=== PATIENT | female | born 1975 | race Caucasian/White ===

== ENCOUNTER 2020-04-30 08:00 | Inpatient (IN) | payer BC, MEDICAID ==
[~2020-04-30] VITALS: Ht 154.9 cm; Wt 81.8 kg
[~2020-04-30 08:00] MED LIST: CALC500T63 PO; CHOL50004 PO; ENZY1TAB5 PO; LACT1CAP73 PO; MULT-1085 PO; OMEG1CAP46 PO; VITA-268 PO; [UNRECOGNIZED DRUG - OTHER] PO; [UNRECOGNIZED DRUG - REMARK] PO; azithromycin/NS 500mg/250ml 250 ML IV ONE
[2020-04-30] MEDS ORDERED: normal saline 1000ml 1,000 ML IV ONE ×3 (11:05→12:50)
--- NOTE | 2020-04-30 11:20 | NUR ---
Dory continuing with care of pt at this time
[2020-04-30] MEDS ORDERED: enoxaparin 100mg/ml syringe SUBCUT ONE (11:25)
--- NOTE | 2020-04-30 11:25 | NUR ---
PT SATS INTERMITTENTLY FLUXIATING FROM 70 TO 95% ON RA. PT PLACED ON NC 6L O2 AND PROVIDER CHUCKY GILLETTE CALLED TO ROOM AND SEEN PT. PT TO REMAIN ON O2 @6L VIA NC AND TO START LOVENOX
[2020-04-30] MEDS ORDERED: enoxaparin 80mg/0.8ml syringe SUBCUT ONE (11:30)
[2020-04-30 11:36] LABS: HEMOGLOBIN 7.5 g/dl (12.0-16.0); RED BLOOD COUNT 2.03 X10'6 (4.20-5.60)
[2020-04-30 11:39] LABS: MEAN CORPUSCULAR HEMOGLOBIN 37.2 PG (27.0-31.0); MEAN CORPUSCULAR HGB CONC 35.4 g/dL (33.0-36.5); MEAN CORPUSCULAR VOLUME 104.9 FL (78-98); RED CELL DISTRIBUTION WIDTH 19.3 % (11.5-14.5)
[2020-04-30 11:43] LABS: WHITE BLOOD COUNT 150.2 X10'3 (4.5-11.0)
[2020-04-30 11:45] LABS: HEMATOCRIT 21.2 % (35.0-45.0)
[2020-04-30] MEDS ORDERED: morphine 4 MG/ML inj SYRINge IV ONE (11:50)
[2020-04-30] MEDS ORDERED: acetaminophen 325mg tablet PO ONE (11:50)
[2020-04-30] MEDS ORDERED: ondansetron/PF 4mg/2ml inj IV ONE (11:50)
[2020-04-30] MEDS ORDERED: iohexol 350MG/ML 100ml bottle IV ONE (11:52)
[2020-04-30 11:53] LABS: D-DIMER 24.68 MG/L FEU (0-0.50)
[2020-04-30 11:58] LABS: ALANINE AMINOTRANSFERASE 89 U/L (12-78); ALBUMIN 3.8 G/DL (3.4-5.0); ALKALINE PHOSPHATASE 97 IU/L (46-116); ANION GAP 12 (8-16); ASPARTATE AMINO TRANSFERASE 94 U/L (10-37); BILIRUBIN,TOTAL 1.1 MG/DL (0.1-1.0); BLOOD UREA NITROGEN 12 MG/DL (7-18); BUN/CREATININE RATIO 9.1 (6.6-38.0); CALCIUM 9.5 MG/DL (8.5-10.1); CHLORIDE 103 MMOL/L (99-107); CREATININE 1.32 MG/DL (0.40-0.90); GLUCOSE 130 MG/DL (70-104); SODIUM 141 MMOL/L (135-145); TOTAL CARBON DIOXIDE 25.9 MMOL/L (24-32); TOTAL PROTEIN 7.7 G/DL (6.4-8.2); eGFR 44 ML/MIN
[2020-04-30 12:01] LABS: POTASSIUM 2.9 MMOL/L (3.5-5.1)
--- NOTE | 2020-04-30 12:06 | NUR ---
PT O2 SATS WENT DOWN TO 80% WITH NC AT 2L, PT PLACED ON NON-REBREATHER AT 15L AND O2 SATS NOW 98%.
[2020-04-30 12:08] LABS: TOTAL CELLS COUNTED 100
[2020-04-30 12:11] LABS: PLATELET ESTIMATE DECREASED
[2020-04-30] MEDS ORDERED: potassium 10mEq/100ml NS w/LIDOcaine (10mg/bag) IV ONE (12:15)
[2020-04-30] MEDS ORDERED: potassium Cl 10 mEq/100mL bag IV SCH (12:20)
[2020-04-30] MEDS ORDERED: potassium Cl 10 mEq/100mL bag IV ONE (12:20)
[2020-04-30 12:22] LABS: LACTATE DEHYDROGENASE 3414 U/L (81-234)
[2020-04-30] MEDS ORDERED: CefTRIAXone/D5W-Rocephin 1gm 50 ML IV ONE (12:30)
[2020-04-30] MEDS ORDERED: azithromycin/NS 500mg/250ml 250 ML IV ONE (12:30)
--- NOTE | 2020-04-30 12:59 | NUR ---
1ST CONTACT WITH PT, PT IS SITTING UP IN BED, TALKING FULL SENTENCES, SLIGHTLY PRODUCTIVE COUGH, ON NRB, PAIN IS 4/10 MIDSTERNAL CHEST PAIN RADIATING TO SCAPULA, AND RT ANTERIOR THIGH PAIN
--- NOTE | 2020-04-30 13:00 | NUR ---
WENT WITH PT TO CT SCAN ,PT ON NONREBREATHER MASK SAT 98%,PT STATED THAT SHE IS FEELING CALUSTROPHOBIC ,PT WAS DIAPHORTIC AND LOOKED ANXIOUS ,REMOVED THE NONREBREATHER MASK AND HAD HER ON NC AND PT WAS SATURATING 85-88%.HAD HER BACK ON NONBREA AFTER CT SCAN WAS DONE,PT BROUGHT BACK TO ROOM RT WAITING FOR THE PT FOR ABG.
--- NOTE | 2020-04-30 13:04 | NUR ---
RT AT BEDSIDE
--- NOTE | 2020-04-30 13:10 | NUR ---
2ND LITER NS INFUSING W/O,
[2020-04-30] MEDS ORDERED: vancomycin/NS 1 GM ADD-VANTAGE 250 ML IV ONE (13:15)
[2020-04-30 13:20] LABS: ABG BASE EXCESS -3.6 mmol/L (-2.0-2.0); ABG HCO3 21.1 mmol/L (22.0-26.0); ABG OXYGEN SATURATION 88.6 % (94-97); ABG PCO2 (T) 37.1 mmHg (32.0-45.0); ABG PO2 (T) 58.9 mmHg (75.0-100.0); ALLEN'S TEST POSITIVE; FCOHb 0.5 % (0.0-3.9); FLOW 12 L/min; FO2Hb 88.2 % (94-97); PATIENT TEMPERATURE 37.5; TOTAL HEMOGLOBIN 7.3 G/dl (12.0-16.0)
[2020-04-30 14:09] LABS: OCCULT BLOOD STOOL NEGATIVE (Neg)
[2020-04-30] MEDS ORDERED: methylPREDNISolone sod succ 125mg/2ml vial IV ONE (14:25)
--- NOTE | 2020-04-30 14:34 | NUR ---
DR PRICE AT BEDSIDE TO EVALUATE PT, 4TH LITER NS INFUSING
[2020-04-30] MEDS ORDERED: methylPREDNISolone sod succ 1,000 MG in dextrose 5%-water 50ml 50 ML IV ONE (14:35)
[2020-04-30] MEDS ORDERED: fentaNYL/PF 50MCG/1 ML 2ML syringe IV ONE (14:35)
[2020-04-30] MEDS ORDERED: aspirin 325mg tablet PO ONE (14:45)
[2020-04-30] MEDS ORDERED: NORepinephrine 8mg/ 250ml NS 250 ML IV SCH (16:25)
[2020-04-30] MEDS ORDERED: LIDOcaine 2% 10ml TOPICAL JELLY (Urojet) TP ONE (16:40)
[2020-04-30] MEDS ORDERED: LORazepam 2 mg/ml vial IV ONE (17:40)
--- NOTE | 2020-04-30 18:00 | NUR ---
RELIEVING RN FOR BREAK, ON LEVOPHED GTT, CHANGED DRESSING TO RT IJ CENTRAL LINE, OOZING SMALL AMOUNT OF BLOOD AT SITE OF INSERTION, BP 88/53, MAP 64, JUAN F BIPAP WELL, PT IS RESTING QUIETLY
--- NOTE | 2020-04-30 18:01 | NUR ---
NOTE AT 1800 WAS WRITTEN BY ME, Brian ROSARIO RN, I AM RELIEVING HARRISON KC FOR BREAK
[2020-04-30 19:04] LABS: CLARITY,URINE SLIGHTLY CLOUDY (Clear); COLOR,URINE AMBER (Yellow); GLUCOSE, URINE NEGATIVE (Neg); KETONES,URINE TRACE mg/dl (Neg); LEUKOCYTE ESTERASE ,URINE NEGATIVE (Neg); NITRITES, URINE NEGATIVE (Neg); OCCULT BLOOD,URINE LARGE (Neg); PROTEIN,URINE >=300 mg/dl (Neg); UROBILINOGEN,URINE 0.2 E.U/dL (0.2-1.0)
[2020-04-30 19:07] LABS: UA COLLECTION TYPE FOLEY CATH
[2020-04-30 19:11] LABS: BACTERIA,URINE 2+ /HPF (Neg); RBC,URINE 0-2 /HPF (0-2); WBC,URINE 0-4 /HPF (0-4)
[2020-04-30 19:12] LABS: FINE GRANULAR CAST 0-3 /LPF (NEGATIVE); SQUAMOUS EPITHELIAL CELL,UR FEW /LPF (FEW)
--- NOTE | 2020-04-30 19:36 | NUR ---
CALLED [facility] FOR UPDATE THEY SAID THAT THEY WERE WAITNG FOR ABG AND URINE OUTPUT BEFORE ACCEPTING
[2020-04-30 20:06] LABS: ABG BASE EXCESS -12.1 mmol/L (-2.0-2.0); ABG HCO3 14.4 mmol/L (22.0-26.0); ABG OXYGEN SATURATION 83.3 % (94-97); ABG PCO2 (T) 35.8 mmHg (32.0-45.0); ABG PO2 (T) 54.7 mmHg (75.0-100.0); FCOHb 0.3 % (0.0-3.9); FMetHb 0.3 % (0.0-1.5); FO2Hb 82.8 % (94-97); PATIENT TEMPERATURE 37.5; RESPIRATORY RATE 12 b/min; TOTAL HEMOGLOBIN 6.6 G/dl (12.0-16.0)
[2020-04-30] MEDS ORDERED: furosemide 10 MG/1 ML 10ml inj IV ONE (21:25)
[2020-04-30 21:40] LABS: ABG BASE EXCESS -13.1 mmol/L (-2.0-2.0); ABG HCO3 13.1 mmol/L (22.0-26.0); ABG OXYGEN SATURATION 92.7 % (94-97); ABG PCO2 (T) 31.6 mmHg (32.0-45.0); ABG PO2 (T) 70.7 mmHg (75.0-100.0); ALLEN'S TEST Yes; FCOHb 0.4 % (0.0-3.9); FMetHb 0.2 % (0.0-1.5); FO2Hb 92.1 % (94-97); PATIENT TEMPERATURE 37.2; RESPIRATORY RATE 16 b/min; TOTAL HEMOGLOBIN 6.9 G/dl (12.0-16.0)
[2020-04-30] MEDS ORDERED: potassium cl 20mEq in 1/2 NS 1,000 ML IV SCH (22:30)
[2020-05-01] VITALS (13 sets, daily range): BP systolic 89–235; BP diastolic 46–167
[2020-05-01] MEDS: LORazepam 2 mg/ml vial IV ONE ×2 (00:05→00:52)
--- NOTE | 2020-05-01 00:15 | NUR ---
PATIENT'S BLOOD PRESSURE READY @ 200+ SBP FOUND TO BE INACCURATE. ACTUALL BP 100/65 CONFIRMED WITH MANUAL AND DIFFERENT MONITOR. PATIENT NO ON PORTABLE MONITOR
--- NOTE | 2020-05-01 00:48 | NUR ---
[facility], [facility], [facility], [facility] ALL DECLINED DUE TO NO BEDS. MARELY MORENO SAID TO CHECK BACK IN THE MORNING TO SEE IF THEY HAVE AVALIABLE ICU BEDS. [facility] SAID THE SAME. BUT WILL CALL BACK IN THE AM.
[2020-05-01 01:05] LABS: MEAN CORPUSCULAR HGB CONC 34.9 g/dL (33.0-36.5); MEAN CORPUSCULAR VOLUME 105.8 FL (78-98); RED BLOOD COUNT 1.76 X10'6 (4.20-5.60); RED CELL DISTRIBUTION WIDTH 20.4 % (11.5-14.5)
[2020-05-01 01:09] LABS: HEMOGLOBIN 6.6 g/dl (12.0-16.0); WHITE BLOOD COUNT 141.5 X10'3 (4.5-11.0)
[2020-05-01 01:10] LABS: HEMATOCRIT 18.3 % (35.0-45.0)
--- NOTE | 2020-05-01 02:55 | NUR ---
CONTACTED BY BLOOD BANK AND INFORMED THAT THE BLOOD WOULD BE DELAYED DUE TO NEEDING TO BE IRRADIATED
--- NOTE | 2020-05-01 07:09 | NUR ---
md made aware of pt's current vital signs. 98.6 axillary, 117, 28RR, 235/167
[2020-05-01 07:52] LABS: RED CELL DISTRIBUTION WIDTH 21.2 % (11.5-14.5)
[2020-05-01] MEDS ORDERED: pantoprazole 40 MG vial IV SCH (08:00)
[2020-05-01] MEDS ORDERED: CefTRIAXone/D5W-Rocephin 1gm 50 ML IV SCH (08:00)
[2020-05-01 08:06] LABS: HEMOGLOBIN 7.8 g/dl (12.0-16.0); MEAN CORPUSCULAR HEMOGLOBIN 36.8 PG (27.0-31.0); MEAN CORPUSCULAR HGB CONC 35.5 g/dL (33.0-36.5); MEAN CORPUSCULAR VOLUME 103.7 FL (78-98); MEAN PLATELET VOLUME 8.3 FL (7.4-10.4); RED BLOOD COUNT 2.12 X10'6 (4.20-5.60)
[2020-05-01 08:08] LABS: ALANINE AMINOTRANSFERASE 359 U/L (12-78); ALBUMIN 2.9 G/DL (3.4-5.0); ALBUMIN/GLOBULIN RATIO 0.8 (1.1-1.5); ALKALINE PHOSPHATASE 73 IU/L (46-116); ANION GAP 16 (8-16); ASPARTATE AMINO TRANSFERASE 364 U/L (10-37); BLOOD UREA NITROGEN 27 MG/DL (7-18); BUN/CREATININE RATIO 10.3 (6.6-38.0); CALCIUM 7.8 MG/DL (8.5-10.1); CHLORIDE 108 MMOL/L (99-107); CREATININE 2.63 MG/DL (0.40-0.90); GLUCOSE 162 MG/DL (70-104); POTASSIUM 5.3 MMOL/L (3.5-5.1); SODIUM 142 MMOL/L (135-145); TOTAL CARBON DIOXIDE 17.8 MMOL/L (24-32); TOTAL PROTEIN 6.5 G/DL (6.4-8.2); eGFR 20 ML/MIN
--- NOTE | 2020-05-01 08:25 | NUR ---
noticed a possible infiltration of the central line, advised dr chang
[2020-05-01 08:47] LABS: PLATELET COUNT 72 X10'3 (140-440)
[2020-05-01 08:51] LABS: WHITE BLOOD COUNT 153.4 X10'3 (4.5-11.0)
[2020-05-01 09:04] LABS: TOTAL CELLS COUNTED 100
[2020-05-01 09:05] LABS: ANISOCYTOSIS 3+; HYPOGRANULAR PLATELETS MANY; PLATELET ESTIMATE DECREASED
[2020-05-01 09:06] LABS: POIKILOCYTOSIS FEW; SPHEROCYTES FEW
[2020-05-01 09:07] LABS: TEAR DROP CELLS FEW
--- NOTE | 2020-05-01 09:35 | NUR ---
dr chang advises that the central line is ok to use. I shared the conversation with charge nurse Yoselyn. will continue to monitor for any changes
[2020-05-01] MEDS ORDERED: azithromycin/NS 500mg/250ml 250 ML IV SCH ×2 (10:00→12:00)
--- NOTE | 2020-05-01 11:20 | NUR ---
Pt found to be in distress. She had taken her bipap mask off and was throwing pillows at the door in attempt to get staff attention. Pt's bipap returned immediately and called for help with MD, RT, and other nursing staff.
--- NOTE | 2020-05-01 11:25 | NUR ---
Dr. Cameron is preparing to intubate the patient due to acute respiratory distress and airway stabilization.
[2020-05-01] MEDS ORDERED: MIDAZolam 5mg/ml 2ml vial IV ONE (11:45)
[2020-05-01] MEDS ORDERED: midazolam 100mg in NS 100ml 100 ML IV PRN (11:45)
--- NOTE | 2020-05-01 12:14 | NUR ---
Dr. Cameron is preparing to insert arterial line.
--- NOTE | 2020-05-01 12:25 | NUR ---
Pt's hr decreased and verified by US that she was pulseless. CPR resumed, epinephrine 1 mg IVP given
[2020-05-01] MEDS ORDERED: epiNEPHrine inj 5 MG in normal saline 250ml IV soln 245 ML IV SCH (12:35)
[2020-05-01] MEDS ORDERED: pantoprazole 40 MG vial IV ONE (12:40)
[2020-05-01] MEDS ORDERED: famotidine/PF 10 mg/ml inj IV ONE (12:40)
[2020-05-01] MEDS ORDERED: sodium bicarbonate (8.4%) inj. 150 MEQ in dextrose 5%-water 1,000 ML IV SCH (12:49)
[2020-05-01] MEDS ORDERED: sodium bicarbonate (8.4%) 1 mEq/ml syringe IV ONE (12:50)
[2020-05-01] MEDS ORDERED: ondansetron/PF 4mg/2ml inj IV PRN ×2 (13:20→14:40)
[2020-05-01] MEDS ORDERED: LIDOcaine 2% 10ml TOPICAL JELLY (Urojet) TP ONE ×2 (13:20→14:40)
[2020-05-01] MEDS ORDERED: morphine 2 MG/ML inj. syringe IV PRN ×2 (13:20→14:40)
[2020-05-01] MEDS ORDERED: morphine 4 MG/ML inj SYRINge IV PRN ×2 (13:20→14:40)
[2020-05-01] MEDS ORDERED: acetaminophen 325mg tablet PO PRN ×4 (13:20→14:40)
[2020-05-01] MEDS ORDERED: potassium Cl 20 mEq SR tablet PO PRN ×4 (13:20→14:40)
[2020-05-01] MEDS ORDERED: magnesium hydroxide 30ml (MOM) UD suspension PO PRN (13:20)
[2020-05-01 13:26] LABS: MEAN CORPUSCULAR HEMOGLOBIN 32.8 PG (27.0-31.0); MEAN CORPUSCULAR HGB CONC 31.2 g/dL (33.0-36.5); MEAN CORPUSCULAR VOLUME 104.9 FL (78-98); RED BLOOD COUNT 1.84 X10'6 (4.20-5.60); RED CELL DISTRIBUTION WIDTH 23.2 % (11.5-14.5)
[2020-05-01 13:29] LABS: MEAN PLATELET VOLUME 8.9 FL (7.4-10.4); PLATELET COUNT 109 X10'3 (140-440)
--- NOTE | 2020-05-01 13:37 | NUR ---
Pt's blood pressure continues to run low, femoral pulses palpable but labile. RT is giving bag valve respirations with the ET tube.
[2020-05-01] MEDS ORDERED: vasopressin 40 UNIT in NS 40ml IV DRIP IV SCH (13:45)
[2020-05-01] MEDS ORDERED: vasopressin inj. 40 UNIT in normal saline 50ml IV soln 38 ML IV SCH (13:50)
--- NOTE | 2020-05-01 13:55 | NUR ---
Transporting the patient to the CICU bed 2010 at this time. Three RN's, Two ED Techs, and three RT staff with the patient during transport.
[2020-05-01 13:56] LABS: WHITE BLOOD COUNT 133.9 X10'3 (4.5-11.0)
[2020-05-01 13:57] LABS: HEMATOCRIT 19.3 % (35.0-45.0)
[2020-05-01] MEDS ORDERED: K, MAG and/or Phos replacement - Verify level? MC SCH (14:00)
--- NOTE | 2020-05-01 14:00 | NUR ---
Patient became pulseless with PEA upon arrival to the ICU and CPR resuming at this time. Care of the patient is being transferred to CICU staff and Dr. Thomas at the bedside at this time.
[2020-05-01 14:26] LABS: TOTAL CELLS COUNTED 100
[2020-05-01 14:34] LABS: PLATELET ESTIMATE DECREASED
[2020-05-01 14:35] LABS: ABG BASE EXCESS -26.3 mmol/L (-2.0-2.0); ABG HCO3 7.4 mmol/L (22.0-26.0); ABG OXYGEN SATURATION 70.4 % (94-97); ABG PCO2 (T) 58.3 mmHg (32.0-45.0); ABG PO2 (T) 60.1 mmHg (75.0-100.0); FCOHb 0.3 % (0.0-3.9); FLOW 15 L/min; FMetHb 0.9 % (0.0-1.5); FO2Hb 69.6 % (94-97); PEEP 15 cm H2O; TOTAL HEMOGLOBIN 6.7 G/dl (12.0-16.0)
[2020-05-01 14:35] LABS: ANISOCYTOSIS 3+; HYPOGRANULAR PLATELETS MANY
[2020-05-01] MEDS ORDERED: EPIneph 5MG & 1000mg Calcium/250ML bag IV PRN ×3 (14:35)
[2020-05-01 14:36] LABS: SPHEROCYTES FEW
[2020-05-01 14:37] LABS: POIKILOCYTOSIS FEW; SCHISTOCYTES 1+
[2020-05-01 14:39] LABS: TEAR DROP CELLS FEW
--- NOTE | 2020-05-01 14:39 | NUR ---
1120 Pt is in acute respiratory distress at this time, additional staff and MD called to the bedside. 1128 Preparing to intubate the patient, RSI medications are being prepared. 1132 Epi 0.1mg/ml given at this time 1133 CPR started, having difficulty obtaining BP reading at this time. 1136 Etomidate 40mg given IVP, pt is receiving BVM respirations to oxygenate the patient 1137 Dr. Cameron suctioned large amount of blood from the mouth and throat prior to ET. 1138 Etomidate 40 mg given IVP 7.5 ET tube placed by Dr. Cameron, placement verified with auscultation, colormetric device, ETCO2 device applied. Tube secured by RT. 1138 OG 16F placed by Dr. Cameron, placement confirmed with return of gastric contents 1142 Rocuronium 100 mg IVP given at this time. 1158 HR thready by femoral palpation. Dr. Boyle notified 1203 pulseless, CPR resumed. Dr. Boyle at bedside. 1205 121 HR, verified by US by Dr. Lindquist. 1214 Dr. Lindquist is preparing to insert arterial line. 1224 García changed to insert temp probe garcía. Cooling protocol initiated. 500ml of thony urine in the garcía that was discontinued to insert the new one. 1225 CPR resumed, 0.1mg/ml of epi given. Awaiting EPi drip from the pharmacy. 1228 ROSC, epi and norepi drips are maxed at this time. 1230 NSS 0.9% 1000ml bolus started 1243 Norepi (Levophed) drip restarted per Verbal order from Dr. Cameron. CPR restarted 1246 ROSC 129 SR, BP 194/87 1250 Bicarb 1amp given & Epi 0.1mg/ml amp given 1252 Bicarb 1 amp given 1253 Epi 1amp given 1255 Epi 1amp given and bicarb 1 amp given 1258 HR 113, ST, BP 126/68 epi 0.1mg/ml amp given [address], BP 91/47, epi 0.1mg/ml amp given 1304 CPR resumed, Dr. Boyle at the bedside. 1307 CPR continues after pulse check, epi 1mg push dose given 130[address] HR [address] HR 1320 CPR resumed, epi 1mg push dose given while awaiting epi drip from pharmacy [address], Norepi drip increased to max dose of 1mcg/kg/min [address] Lexa elise 134[address] Dr[address] Cameron and Dr. Thomas are at the bedside discussing the care plan 1353 Preparing to transport to CICU at this time. RT has taken the vent upstairs, and Dr. Thomas will meet the patient in the unit upon arrival to the ICU.
[2020-05-01 14:50] LABS: ALBUMIN 1.5 G/DL (3.4-5.0); ALBUMIN/GLOBULIN RATIO 0.7 (1.1-1.5); ALKALINE PHOSPHATASE 67 IU/L (46-116); ANION GAP 21 (8-16); BLOOD UREA NITROGEN 28 MG/DL (7-18); BUN/CREATININE RATIO 9.7 (6.6-38.0); CHLORIDE 119 MMOL/L (99-107); CREATININE 2.88 MG/DL (0.40-0.90); GLUCOSE 87 MG/DL (70-104); SODIUM 151 MMOL/L (135-145); TOTAL PROTEIN 3.7 G/DL (6.4-8.2); eGFR 18 ML/MIN
[2020-05-01] MEDS ORDERED: azithromycin/NS 500mg/250ml 250 ML IV ONE (14:50)
[2020-05-01 14:55] LABS: ALANINE AMINOTRANSFERASE 1846 U/L (12-78); POTASSIUM 5.3 MMOL/L (3.5-5.1)
[2020-05-01 14:56] LABS: TOTAL CARBON DIOXIDE 10.6 MMOL/L (24-32)
[2020-05-01 15:01] LABS: MEAN CORPUSCULAR HEMOGLOBIN 32.2 PG (27.0-31.0); MEAN CORPUSCULAR HGB CONC 28.9 g/dL (33.0-36.5); MEAN CORPUSCULAR VOLUME 111.7 FL (78-98); MEAN PLATELET VOLUME 8.2 FL (7.4-10.4); PLATELET COUNT 131 X10'3 (140-440); RED BLOOD COUNT 1.68 X10'6 (4.20-5.60); RED CELL DISTRIBUTION WIDTH 24.3 % (11.5-14.5)
[2020-05-01 15:05] LABS: ABG HCO3 9.5 mmol/L (22.0-26.0); ABG OXYGEN SATURATION 88.2 % (94-97); ABG PCO2 (T) 47.6 mmHg (32.0-45.0); ABG PO2 (T) 78.6 mmHg (75.0-100.0); FCOHb 0.5 % (0.0-3.9); FLOW 15 L/min; FMetHb 1.1 % (0.0-1.5); FO2Hb 86.8 % (94-97); PATIENT TEMPERATURE 37.1; TOTAL HEMOGLOBIN 5.8 G/dl (12.0-16.0)
[2020-05-01 15:05] LABS: ASPARTATE AMINO TRANSFERASE 2324 U/L (10-37)
[2020-05-01 15:07] LABS: HEMOGLOBIN 5.4 g/dl (12.0-16.0); WHITE BLOOD COUNT 129.3 X10'3 (4.5-11.0)
[2020-05-01 15:08] LABS: HEMATOCRIT 18.8 % (35.0-45.0)
[2020-05-01 15:30] LABS: TOTAL CELLS COUNTED 100
[2020-05-01 15:32] LABS: ANISOCYTOSIS 3+; PLATELET ESTIMATE DECREASED; SCHISTOCYTES 1+
[2020-05-01 15:33] LABS: LARGE PLATELETS FEW
[2020-05-01 15:39] LABS: PARTIAL THROMBOPLASTIN TIME 55 SECONDS (22-32)
[2020-05-01 15:41] LABS: D-DIMER > 35.20 MG/L FEU (0-0.50)
[2020-05-01 15:42] LABS: PLATELET COUNT 131 X10'3 (140-440)
[2020-05-01] MEDS ORDERED: piperacillin/tazo 3.375gm/50ml 50 ML IV SCH (16:00)
[2020-05-01] MEDS ORDERED: pantoprazole 40MG/NS 100ML BAG 100 ML IV SCH (16:00)
[2020-05-01] MEDS ORDERED: dexamethasone sod phosphate 10mg/ml inj IV SCH (16:00)
--- NOTE | 2020-05-01 17:12 | NUR ---
1355: Patient arrived to CICU, cpr in progress. Dr. Thomas at bedside upon pt.'s arrival. Medications given as ordered by Dr. Thomas, see Code Blue record for more information. 1412: ROSC was achieved approximately at this time and the patient's vital signs stable at time. Levophed, Vasopressin, and Epical infusing at max dosage per MD titratable order. 1515: Pt. became hypotensive despite max dosage of ordered vasoactive medications, also bradycardic, CPR initiated and code blue called. Dr. Thomas was at bedside. See Code Blue record for more information. 1532: Patient Asystolic and code was ended by Dr. Thomas. Patient's brother was notified and spoke with Dr. Thomas.
[2020-05-01] MEDS ORDERED: vancomycin/NS 1 GM ADD-VANTAGE 250 ML IV SCH (20:00)
[2020-05-02 10:31] LABS: PATIENT TEMPERATURE 36.4
[2020-05-02 10:32] LABS: RESPIRATORY RATE 16 b/min
[2020-05-02 10:33] LABS: ABG PCO2 (T) 78.9 mmHg (32.0-45.0); ABG PO2 (T) 41.8 mmHg (75.0-100.0); PEEP 12 cm H2O
[2020-05-02 10:34] LABS: FCOHb 0.5 % (0.0-3.9); FO2Hb 45.8 % (94-97); TOTAL HEMOGLOBIN 7.2 G/dl (12.0-16.0)
[2020-05-02 10:35] LABS: ABG OXYGEN SATURATION 46.2 % (94-97); FMetHb 0.3 % (0.0-1.5)
[2020-05-02 10:43] LABS: FLOW 15 L/min; PATIENT TEMPERATURE 37.1
[2020-05-02 10:44] LABS: ABG PCO2 (T) 85.4 mmHg (32.0-45.0); ABG PO2 (T) 34.5 mmHg (75.0-100.0); FCOHb 0.3 % (0.0-3.9); FMetHb 0.7 % (0.0-1.5); FO2Hb 31.8 % (94-97); TOTAL HEMOGLOBIN 6.7 G/dl (12.0-16.0)
[2020-05-02 10:45] LABS: ABG OXYGEN SATURATION 32.1 % (94-97)
[2020-05-02] MEDS ORDERED: vancomycin/NS 1 GM ADD-VANTAGE 250 ML IV SCH (13:00)
== END 2020-05-01 15:32 | disposition expired | DRG 871 ==
LOC: ER 08:00 → ED HOLD 05-01 13:16 → CICU 2S 05-01 14:00
PROC: 5A09357 Assistance with Respiratory Ventilation, Less than 24 Consecutive Hours, Continuous Positive Airway Pressure (ICD-10-PCS; principal; 2020-04-30)
PROC: 02HV33Z Insertion of Infusion Device into Superior Vena Cava, Percutaneous Approach (ICD-10-PCS; 2020-04-30)
PROC: B548ZZA Ultrasonography of Superior Vena Cava, Guidance (ICD-10-PCS; 2020-04-30)
PROC: B32T1ZZ Computerized Tomography (CT Scan) of Left Pulmonary Artery using Low Osmolar Contrast (ICD-10-PCS; 2020-04-30)
PROC: B3201ZZ Computerized Tomography (CT Scan) of Thoracic Aorta using Low Osmolar Contrast (ICD-10-PCS; 2020-04-30)
PROC: B32S1ZZ Computerized Tomography (CT Scan) of Right Pulmonary Artery using Low Osmolar Contrast (ICD-10-PCS; 2020-04-30)
PROC: 30233N1 Transfusion of Nonautologous Red Blood Cells into Peripheral Vein, Percutaneous Approach (ICD-10-PCS; 2020-05-01)
PROC: 5A12012 Performance of Cardiac Output, Single, Manual (ICD-10-PCS; 2020-05-01)
PROC: 5A1935Z Respiratory Ventilation, Less than 24 Consecutive Hours (ICD-10-PCS; 2020-05-01)
PROC: 0BH17EZ Insertion of Endotracheal Airway into Trachea, Via Natural or Artificial Opening (ICD-10-PCS; 2020-05-01)
PROC: 04HY32Z Insertion of Monitoring Device into Lower Artery, Percutaneous Approach (ICD-10-PCS; 2020-05-01)
PROC: 4A133B1 Monitoring of Arterial Pressure, Peripheral, Percutaneous Approach (ICD-10-PCS; 2020-05-01)
PROC: 4A133J1 Monitoring of Arterial Pulse, Peripheral, Percutaneous Approach (ICD-10-PCS; 2020-05-01)
DX: A41.9 Sepsis, unspecified organism (principal); J18.9 Pneumonia, unspecified organism; J96.01 Acute respiratory failure with hypoxia; C95.00 Acute leukemia of unspecified cell type not having achieved remission; N17.9 Acute kidney failure, unspecified; S36.119A Unspecified injury of liver, initial encounter; R57.9 Shock, unspecified; E87.3 Alkalosis; E87.2 Acidosis; K80.20 Calculus of gallbladder without cholecystitis without obstruction; X58.XXXA Exposure to other specified factors, initial encounter; R74.0 Nonspecific elevation of levels of transaminase and lactic acid dehydrogenase [LDH]; D53.9 Nutritional anemia, unspecified; Z20.828 Contact with and (suspected) exposure to other viral communicable diseases; E87.6 Hypokalemia; I46.9 Cardiac arrest, cause unspecified; Z80.3 Family history of malignant neoplasm of breast; Z85.3 Personal history of malignant neoplasm of breast; Z88.0 Allergy status to penicillin; Y93.89 Activity, other specified; Y92.89 Other specified places as the place of occurrence of the external cause; Y99.8 Other external cause status
CPT/HCPCS: 36415; 36430; 36556; 36600; 71045; 71275; 73551; 80053; 81001; 82272; 82803; 83605; 83615; 83880; 84145; 84484; 84550; 85007; 85018; 85025; 85379; 85384; 85610; 85730; 86885; 86900; 86901; 86920; 86945; 87040; 87070; 87088; 87502; 87503; 87635; 92950; 93005; 94002; 94660; 94760; 96365; 96366; 96367; 96368; 96372; 96375; 99291; 99292; G0378; J0171; J0456; J0696; J1650; J1940; J2060; J2270; J2405; J2930; J3010; J3370; J3480; J7030; J7050; J7060; P9016; Q9967